=== PATIENT | female | born 1980 | race Caucasian/White ===

== ENCOUNTER 2020-05-27 18:13 | Observation (INO) | payer MEDICAID ==
[~2020-05-27] VITALS: Ht 152.4 cm; Wt 88.9 kg
[2020-05-27] MEDS ORDERED: PREN1TAB78 PO (19:26)
[2020-05-27] MEDS ORDERED: ZOLOFT (19:26)
== END 2020-05-27 19:53 | disposition home or self-care (01) ==
LOC: 8 EST LDRP 18:13
PROVIDERS: ADMIT Specialist; ATTEND Specialist
DX: O62.9 Abnormality of forces of labor, unspecified (principal); Z3A.35 35 weeks gestation of pregnancy
CPT/HCPCS: 59025; G0378; 99281